=== PATIENT | female | born 1950 | race Caucasian/White ===

== ENCOUNTER → 2017-11-25 | Outpatient (CLI) | payer MEDICARE ==
--- NOTE | 2017-11-26 15:47 | RADIOLOGY IMAGING REPORT ---
FACILITY: [facility] PATIENT NAME: MACIE LEAVITT : [id number] MR: [id number] V: [id number] EXAM DATE: [id number] ORDERING PHYSICIAN: RAMÍREZ HAIRSTON TECHNOLOGIST: Skylar Sevilla PROCEDURE:BILATERAL DIGITAL SCREENING MAMMOGRAM WITH CAD ASSISTED INTERPRETATION & 3D TOMOSYNTHESIS COMPARISON:Prior mammograms dated 12/23/15, 10/19/12, 09/29/12 INDICATIONS:SCREENING FINDINGS: Moderately dense fibroglandular tissue is seen throughout the breasts. The parenchymal pattern has remained stable allowing for difference in mammographic technique & patient positioning. There is no evidence of malignant appearing mass, malignant appearing calcification or other secondary sign of malignancy in either breast. Biopsy clip again noted in the upper outer quadrant of the left breast. DIAGNOSTIC CATEGORY 1--NEGATIVE. RECOMMENDATIONS: ROUTINE MAMMOGRAM AND CLINICAL EVALUATION. IMPRESSION: BIRADS 1: Negative. No significant abnormality is seen. Dictated by: Afsaneh Carney M.D. on 11/25/2017 at 16:45 Transcribed by: ZINA on 11/26/2017 at 9:12 Approved by: Afsaneh Carney M.D. on 11/26/2017 at 15:47 [facility]
== END ==
LOC: MAMO 00:31
PROVIDERS: ATTEND Family Medicine
DX: Z12.31 Encounter for screening mammogram for malignant neoplasm of breast (principal)
CPT/HCPCS: 77063; 77067